=== PATIENT | male | born 1995 | race Caucasian/White ===

== ENCOUNTER 2022-03-16 04:05 | Emergency (ER) | payer OTHER, SELFPAY ==
[2022-03-16] VITALS (14 sets, daily range): BP systolic 113–135; BP diastolic 58–89; PULSE 65–83; RESP 18–22; TEMP 36.5; O2SAT 98–100
--- NOTE | ~2022-03-16 | CT_ITS ---
EXAMINATION: CT abdomen pelvis w con DATE: 03/16/2022 07:48 INDICATION: Right upper quadrant abdominal pain radiating to back. Nausea. TECHNIQUE: Computed tomography (CT) of the abdomen and pelvis was performed with 100 CC Omnipaque 350 intravenous contrast. Automated exposure control and iterative reconstruction technique were employe d. Exam dose: 1739.07 mGy-cm total exam DLP. COMPARISON: 03/16/2022 right upper quadrant abdominal ultrasound examination FINDINGS: There is minimal atelectasis at the lung bases. Normal heart size. No pericardial or pleura l effusion. Diffuse hepatic steatosis. No hepatic, splenic, pancreatic, adrenal or renal space-occupying mass les ion. No pericholecystic fluid or fat stranding. No bile duct or pancreatic duct dilatation. No urinary tract calculus or hydroureteronephrosis. The urinary bladder and prostate gland are unrema rkable. Normal caliber of the abdominal aorta. Normal appendix. No bowel obstruction, bowel wall thickening, pneumatosis or intraperitoneal free air is detected. Small fat-containing umbilical hernia. IMPRESSION: Hepatic steatosis Reviewed, dictated and finalized at [facility]. Reviewed, dictated and finalized at [facility]. IMPRESSION: Hepatic steatosis
--- NOTE | ~2022-03-16 | US_ITS ---
US right upper quadrant DATE: 03/16/2022 07:36 INDICATION: Right upper quadrant abdominal pain radiating to back. Nausea. TECHNIQUE: Real-time imaging of liver, pancreas, gallbladder COMPARISON: 03/16/2022 CT abdomen pelvis FINDINGS: There is hepatic steatosis. No hepatic space-occupying mass lesion is evident. Normal hepat opedal portal venous flow direction. There are multiple mobile filling defects of the gallbladder with associated acoustical shadowing, co nsistent with cholelithiasis. No gallbladder wall thickening. Negative sonographic Bell's sign. The common bile duct measures 5.3 mm, within normal limits. No pancreatic mass lesion is evident. IMPRESSION: Cholelithiasis Reviewed, dictated and finalized at [facility]. Reviewed, dictated and finalized at [facility]. IMPRESSION: Cholelithiasis
[2022-03-16 04:29] LABS: Basophils Absolute Auto 0.1 K/mm3 (0.0-0.1); Basophils Percent Auto 0.4 % (0.2-1.2); Eosinophils Absolute Auto 0.4 K/mm3 (0-0.3); Eosinophils Percent Auto 2.7 % (0-4.4); Hematocrit 51.4 % (42.0-52.0); Hemoglobin 16.5 g/dL (14.0-18.0); Immature Granulocyte Absolute 0.09 K/mm3 (0.00-0.031); Immature Granulocyte Percent A 0.6 % (0-0.5); Lymphocytes Absolute Auto 2.31 K/mm3 (0.9-3.2); Lymphocytes Percent Auto 14.2 % (18.3-44.2); Mean Corpuscular HGB Conc 32.1 g/dl (32-36); Mean Corpuscular Volume 84.1 fl (80-100); Mean Platelet Volume 10.7 fl (7.4-10.4); Monocytes Absolute Auto 0.8 K/mm3 (0.1-0.6); Monocytes Percent Auto 4.7 % (2.6-8.5); Neutrophils Absolute Auto 12.7 K/mm3 (1.3-6.7); Neutrophils Percent Auto 77.4 % (45.5-73.1); Platelet Count Result 298 k/mm3 (150-375); Red Blood Count 6.11 M/mm3 (4.6-6.20); Red Cell Distribution Width 14.6 % (11.5-14.5); White Blood Count 16.3 K/mm3 (4.5-10.0)
--- NOTE | 2022-03-16 04:34 | ED.GENADULT ---
HPI - General Adult General Chief complaint: Abdominal Pain <Jae Plummer MD - Last Filed: 03/16/22 05:55> Stated complaint: upper abd pain <Jae Plummer MD - Last Filed: 03/16/22 05:55> Time Seen by Provider: 03/16/22 04:16 <Jae Plummer MD - Last Filed: 03/16/22 05:55> History of Present Illness HPI narrative: this is a 27-year-old male presenting to the ED with upper abdominal pain. Patient said pain started approximately midnight. He describes it as a squeezing pain in the right upper quadrant that radiates to his back. It is 7/10 in intensity. It started on gradually has been getting worse. He has had this 6 times in the last year. He has been evaluated in the emergency department multiple times and been diagnosed with GERD. Patient says is associated with nausea but he has not had any vomiting diarrhea fevers chest pain shortness of breath . He denies hematochezia or melena. He has not seen a GI physician for symptoms. He says he has taken PPIs in the past which have improved his symptoms. <Jae Plummer MD - Last Filed: 03/16/22 05:55> Related Data Allergies/adverse reactions: Allergies Allergy/AdvReac Type Severity Reaction Status Date / Time No Known Allergies Allergy Verified 03/16/22 04:19 <Jae Plummer MD - Last Filed: 03/16/22 05:55> Review of Systems Review of Systems: CONSTITUTIONAL: Denies night sweats. EYES: No eye pain ENT: Denies rhinorrhea CARDIOVASCULAR: Denies palpitations RESPIRATORY: Denies hemoptysis GASTROINTESTINAL: Denies hematemesis GENITOURINARY: Denies hematuria. SKIN: Denies rash MUSCULOSKELETAL: Denies myalgia. NEUROLOGIC: Denies weakness. PSYCHIATRIC: Denies delusions <Jae Plummer MD - Last Filed: 03/16/22 05:55> PMFSH Past Medical History Medical History: Medical History (Updated 03/16/22 @ 12:38 by Acosta Lacy MD) Obesity <Jae Plummer MD - Last Filed: 03/16/22 05:55> Surgical History Surgical History: Surgical History (Updated 03/16/22 @ 04:38 by Jae Plummer MD) S/P ASA (advanced surface ablation) surgery PRK (photorefractive keratectomy) <Jae Plummer MD - Last Filed: 03/16/22 05:55> Social History Social History: Social History (Updated 03/16/22 @ 04:38 by Jae Plummer MD) Social History: patient drinks alcohol occasionally, denies tobacco or drug use. <Jae Plummer MD - Last Filed: 03/16/22 05:55> Exam Narrative: APPEARANCE: No apparent distress. Head atraumatic. EYES: PERRLA/EOMI, NOSE: Normal no drainage NECK: Supple, Trachea midline RESPIRATORY: CTAB, No increased work of breathing. CARDIOVASCULAR: S1S2 appreciated ABDOMINAL: Abdomen is obese with tenderness in the right upper quadrant. The rest the abdomen is soft, nontender with no guarding or rebound. MUSCULOSKELETAl: No obvious deformities NEURO: Alert. Moving 4/4 extremities SKIN:: Warm, dry. Normal color PSYCHIATRIC: Normal affect <Jae Plummer MD - Last Filed: 03/16/22 05:55> Course Course Emergency Course: Work-up today showed elevated liver enzymes, no old records for comparison. Patient drinks alcohol twice a month. He reports that the epigastric and upper abdominal pain started at 1 AM, resolve spontaneously at 5 AM, last meal was 6-hour prior to the pain, patient had similar symptoms numerous of time in the past and had a diagnosis of GERD, tried omeprazole for 14 days with improvement on tramadol.Currently patient is not on any medications. CT scan of the abdomen showed hepatic steatosis, ultrasound showed cholelithiasis without cholecystitis. Patient on phentermine for 1 year. And currently is pain-free. <Acosta Lacy MD - Last Filed: 03/16/22 12:49> Consultations Consultation #1: DR BURCH Recommended to discharge patient home, low-fat diet, follow-up in 1 week to repeat liver enzyme. <Acosta Lacy MD - Last Filed: 03/16/22 12:49> Vital Signs Vital s
[2022-03-16 04:41] LABS: Alanine Aminotransferase 192 U/L (6-50); Albumin Level 5.3 g/dL (3.5-5.1); Alkaline Phosphatase 86 U/L (38-126); Anion Gap 11 mmol/L (8-16); Aspartate Amino Transferase 310 U/L (17-59); Bilirubin,Total 1.1 mg/dL (0.2-1.3); Blood Urea Nitrogen 13 mg/dL (9-20); Calcium 9.9 mg/dL (8.4-10.2); Carbon Dioxide 30 mmol/L (22-30); Chloride 100 mmol/L (98-107); Estimated CRCL calculation 161 ml/min; Estimated Glomerular Filt Rate > 60; Glucose 138 mg/dL (65-110); Lipase 185 U/L (23-300); Potassium 4.2 mmol/L (3.4-5.0); Sodium 141 mmol/L (137-145)
[2022-03-16] MEDS: MAG HYDROX/AL HYDROX/SIMETH 30 ML UDC PO (05:00)
[2022-03-16] MEDS: FAMOTIDINE 20 MG/2 ML VIAL IV PUSH (05:00)
[2022-03-16 09:17] LABS: Appearance Urine Clear (Clear); Bilirubin Urine Negative (Negative); Blood Urine Negative (Negative); Color Urine Yellow (Yellow); Glucose Urine UA Negative (Negative); Ketones Urine Negative (Negative); Leukocyte Esterase Ur Negative LEU/UL (Negative); Nitrate Urine Negative (Negative); Protein Urine Negative (Negative); Urobilinogen Urine 0.2 mg/dL (<2.0); pH Urine 6.5 (5.0-9.0)
[2022-03-16 09:19] LABS: Add Urine Microscopic? NO
== END 2022-03-16 13:11 | disposition home or self-care (01) ==
PROVIDERS: Emergency Medicine; Emergency Provider Emergency Medicine
DX: K80.20 Calculus of gallbladder without cholecystitis without obstruction (principal); R74.01 Elevation of levels of liver transaminase levels; E66.9 Obesity, unspecified; Z68.41 Body mass index [BMI] 40.0-44.9, adult
CPT/HCPCS: 36415; 74177; 76705; 80053; 81003; 83690; 85025; 96374; 99284; A9270; Q9967

== ENCOUNTER 2022-04-18 09:44 | Outpatient (CLI) | payer OTHER, SELFPAY ==
[2022-04-18 10:41] LABS: Alanine Aminotransferase 110 U/L (6-50); Alkaline Phosphatase 64 U/L (38-126); Amylase 71 U/L (30-110); Aspartate Amino Transferase 35 U/L (17-59); Bilirubin,Total 0.5 mg/dL (0.2-1.3)
== END 2022-04-18 09:45 | disposition home or self-care (01) ==
LOC: ANHSURGERY 09:50
PROVIDERS: Visit Provider Surgery
DX: K80.20 Calculus of gallbladder without cholecystitis without obstruction (principal); Z01.818 Encounter for other preprocedural examination
CPT/HCPCS: 36415; 80076; 82150; 86850; 86900; 86901

== ENCOUNTER 2022-04-22 01:02 | Day surgery (SDC) | payer OTHER, SELFPAY ==
[2022-04-17 14:54] VITALS: BMI 46.2
--- NOTE | 2022-04-17 15:01 | PC.NURSE ---
Report to the Outpatient Waiting Room, entrance under the green pavilion located off [facility], at time ___11:00AM____ on date ___[id number]____. OR Time: ___1:00PM . Time changes happen often and if your time is changed the preop area will call you the afternoon before. - You and your visitor will be asked to self-screen and do not enter if you have any COVID symptoms. - Only one visitor and NO children visitors are allowed at this time. - The patient visitor is requested to leave or wait in car when not with patient due to restrictions. - A mask is required within the hospital. Patients may have clear liquids (water, carbonated beverages, clear teas, apple juice) until 3 hours prior to surgery with a maximum of 20 ounces. - No food from midnight until time of surgery - NOTHING TO DRINK AFTER 10:00AM Take the following medications with a SIP of water the morning of surgery: N/A Medications to discontinue per physician N/A Date to take last dose Please no make-up, nail panamanian, hairspray, perfume, deodorant, or body powder the day of surgery. No jewelry (including any body piercings) or valuables the day of surgery, leave them at home. Please take a shower or bath the night before, or the morning of, surgery with an antibacterial soap. Wear comfortable, loose fitting clothing. - Jewelry must be removed prior to entering the operating room. Rings and piercings that are not removed may be cut off. - The hospital will not accept responsibility for valuables. - Please leave all valuables, including medications, at home the day of surgery. If you are going home after surgery, a licensed [employer] delivery driver must drive you home. - NO public transportation without another adult. - We recommend that an adult stay with you for 24 hours following discharge. - We also recommend that you do not drive, make important decision, drink alcoholic beverages, or take any drugs that were not prescribed by your health care provider for at least 24 hours after your discharge time Follow any additional instructions given to you from your surgeon. If you or anyone in your household have experienced Covid symptoms in the past week, please notify your surgeon or the nurse liaison at the phone number below for possible testing. Telephone instructions given to ___PATIENT and asked if any additional questions and then verbalized understanding. Patient advised to call surgeon office or pre surgery nurse liaison [phone] if any additional questions.
[2022-04-22] VITALS (8 sets, daily range): BP systolic 119–169; BP diastolic 71–81; PULSE 63–83; RESP 14–23; TEMP 36.2–36.4; O2SAT 98–100
[2022-04-22] MEDS: ACETAMINOPHEN 500 MG TABLET 1000 MG PO (11:25)
[2022-04-22] MEDS: LACTATED RINGERS 1,000 ML 30 ML IV CONT ×2 (11:40→14:11)
--- NOTE | 2022-04-22 11:45 | P.HPUP_ITS ---
History and Physical Update Update Date/Time: 04/22/22 11:45 History and Physical has been reviewed, including an updated exam of the patient. There are NO changes in the patient's condition. I have discussed with patient the use of robotic assistance for this procedure. I have recommended laparoscopic cholecystectomy, da Ashley assisted. The rest of the assessment and plan remain unchanged. Risks, benefits, and alternatives have been discussed and questions answered. Yaya preciado agrees to proceed with procedure.
--- NOTE | 2022-04-22 11:49 | WPDANESEPPF ---
Anes - Initial Pre Proc Eval Procedure: Operation Date: 04/22/22 13:00 Proposed Procedures p Robotic Cholecystectomy - Khris Pelletier DO Date/Time: 04/22/22 11:49 Surgeon: Khris Pelletier DO Pre Op Diagnosis: Symptomatic Cholelithiasis Patient Data Age: 27 Gender: M Height: 1.85 m Weight: 159 kg Allergies Allergy/AdvReac Type Severity Reaction Status Date / Time No Known Allergies Allergy Verified 04/22/22 11:27 Home Medications Medication Instructions Recorded Confirmed Type phentermine 37.5 mg capsule 37.5 mg PO DAILY 04/17/22 04/17/22 History Patient hx anesthesia problems: none Family hx anesthesia problems: none Results Review: All pre-operative results and documents have been reviewed as part of the pre-operative evaluation. [facility] Past Medical History Medical History (Updated 04/22/22 @ 11:49 by Joe Judd MD) Obesity EFRNE (obstructive sleep apnea) Surgical History Surgical History (Reviewed 03/28/22 @ 08:58 by Blanquita Rose [facility]) S/P ASA (advanced surface ablation) surgery PRK (photorefractive keratectomy) Social History Social History Social History: patient drinks alcohol occasionally, denies tobacco or drug use. Smoking status: Never smoker Second hand tobacco smoke exposure: Yes (FAMILY) Alcohol intake: former Drinks per week: 1 Substance use: never Substance use type: does not use Living arrangements: with roommate(s) Spiritual care concerns: No Anes - Eval Final PreProcedure Day of Procedure 04/22/22 11:49 Patient weight: obese Heart: regular rate and rhythm Lungs: clear to auscultation Airway: Mallampati scale class II Neurological: alert and oriented Last oral intake: >/= 8 hours ASA classification: III Emergent: no Anesthetic plan: proceed Anesthesia type and monitoring: general ETT and standard monitoring Results Review: All pre-operative results and documents have been reviewed as part of the pre-operative evaluation. Informed Consent: The patient's anesthetic plan and its attendant risks and benefits were discussed with the patient/family/POA. Questions were solicited and answers provided to the satisfaction of the patient/family/POA.
[2022-04-22] MEDS: INDOCYANINE GREEN 25 MG VIAL IV PUSH (11:50)
[2022-04-22] MEDS: KETOROLAC 15 MG/ML VIAL (*BKC) IV PUSH (11:55)
[2022-04-22] MEDS: ceFAZolin 3 GM/D5W 100 ML 100 ML IVPB (12:21)
[2022-04-22] MEDS: BUPIVACAINE/EPINEPHRINE 0.25% 50 ML VIAL 30 ML INFILTRATE (13:06)
[2022-04-22] MEDS: oxyCODONE HCL (*CRX) 5 MG TAB IR PO (15:05)
--- NOTE | 2022-04-22 16:53 | W.PM.PROC2 ---
Procedure Note - Detailed Date of Procedure 04/22/22 Pre-op Diagnosis Symptomatic Cholelithiasis Post-op Diagnosis Same Procedure Performed Laparoscopic cholecystectomy, da Ashley assisted Surgeon Khris Pelletier, DO Anesthesia General and Local (0.5% bupivacaine) Indications This is a 27-year-old man presented with right upper quadrant pain started 1 month ago. He previously presented to emergency department CT and ultrasound showed evidence of cholelithiasis. The symptoms were triggered by greasy foods. He was seen in the office and discussions were made with the patient about treatment options. Decision was made to proceed with laparoscopic cholecystectomy, da Ashley assisted. Findings Robotic assisted laparoscopic cholecystectomy was performed. Indocyanine green was given intravenously preoperatively and near infrared scope was used to help identification cystic duct anatomy. The gallbladder was dilated and contained multiple small gallstones. The cystic duct appeared to taper down to normal size. No other intra-abdominal abnormalities were noted. The gallbladder was removed and sent to the lab for pathology. Description of Procedure Procedure as well as risks, benefits, and alternatives were discussed with the patient. Written consent was obtained and placed in chart prior to procedure. 1.5 mL of indocyanine green was given intravenously in preop. Patient was brought back to surgical suite. She was placed supine on operating table. Time-out was done to confirm patient and procedure. She was then intubated by the anesthesia department. Her abdomen was then prepped and draped in sterile fashion using chlorhexidine prep. 0.5% bupivacaine was infiltrated locally at the site of each port placement. An 8 mm incision was made just superior to the umbilicus and a 5 mm Optiview trocar was then advanced through the abdominal layers under direct visualization. Once inside the abdominal cavity, carbon dioxide insufflation was used to create a pneumoperitoneum. The camera was inserted and the abdomen was inspected. No mediated abnormalities were noted. The patient was placed in 10? reverse Trendelenburg position and rotated 10? to the left. Two 8 mm incisions were made in the right lateral abdomen and 2 8 mm trocars were inserted under direct visualization. A 12 mm incision was made in the left lateral abdomen and a 12 mm trocar was inserted under direct visualization. The 5 mm Optiview trocar was then removed and another 8 mm trocar was inserted in its place. The robotic arms were then brought up to the patient's bedside and secured to each port. The camera and instruments were inserted. I then moved over to the robotic consult to take control of the camera and instruments. The gallbladder was grasped at the fundus and retracted cephalad. The infundibulum of the gallbladder was then grasped and retracted laterally. Hook electrocautery was then used to carefully dissect around the neck of the gallbladder. The cystic duct was identified and a window was created around it using hook electrocautery. The cystic artery was also identified and a window was created behind it using hook electrocautery. Critical view of safety was identified visualizing the cystic duct running directly into the neck of the gallbladder and the cystic artery running directly into the wall the gallbladder. The camera view was switched to firefly mode and the indocyanine green within the gallbladder and cystic duct was clearly visualized. No other structures were noted running into this region and there did not appear to be any obstruction of the cystic duct impeding flow of bile into the gallbladder. The camera mode was switched back to regular mode. Hemo lock clips were placed on both the cystic duct and cystic artery. Two clips were placed proximally and 1 distally. Hook electrocautery was then used to transect in between the clips. Once safely away from the niurka hepatus
== END 2022-04-22 16:00 | disposition home or self-care (01) ==
PROVIDERS: Visit Provider Surgery
PROC: 0FT44ZZ Resection of Gallbladder, Percutaneous Endoscopic Approach (ICD-10-PCS; CPT 47562; principal; 2022-04-22 13:00)
DX: K80.10 Calculus of gallbladder with chronic cholecystitis without obstruction (principal); G47.33 Obstructive sleep apnea (adult) (pediatric); E66.01 Morbid (severe) obesity due to excess calories; Z68.41 Body mass index [BMI] 40.0-44.9, adult
CPT/HCPCS: 47562; S2900; 36415; 80076; 82150; 86850; 86900; 86901; 88304; A9270; J0690; J1100; J1885; J2250; J2405; J2704; J2710; J3010; J7030; J7120